=== PATIENT | female | born 1975 | race Asian ===

== ENCOUNTER 2017-03-11 07:52 | Emergency (ER) | payer OTHER ==
[~2017-03-11] VITALS: Ht 154.9 cm; Wt 97.1 kg
[~2017-03-11 07:52] MED LIST: METF500T2 PO; ORE25 PO
[2017-03-11 08:06] VITALS: BP 129/79
--- NOTE | 2017-03-11 08:28 | NUR ---
Patient ambulated to bed 06.
--- NOTE | 2017-03-11 08:34 | NUR ---
41/F present to ED c/o lower back pain x 2 days. pt denies injury or trauma, states that she has hx of sciatica. aaoX4, vss. ERMD notified of patient status.
--- NOTE | 2017-03-11 08:52 | NUR ---
ER MD DR. BARBA EVALUATING PT AT BEDSIDE.
[2017-03-11 09:33] VITALS: BP 124/82
--- NOTE | 2017-03-11 09:33 | NUR ---
Patient discharged with v/s stable. Written and verbal after care instructions given and explained. Patient alert, oriented and verbalized understanding of instructions. Ambulatory with steady gait. All questions addressed prior to discharge. ID band removed. Patient advised to follow up with PMD. Rx of GABAPENTIN & NAPROXYN given. Patient educated on indication of medication including possible reaction and side effects. Opportunity to ask questions provided and answered.
== END 2017-03-11 09:33 | disposition home or self-care (01) ==
LOC: MED 07:52
DX: M54.40 Lumbago with sciatica, unspecified side (principal); E11.9 Type 2 diabetes mellitus without complications; I10 Essential (primary) hypertension; Z79.899 Other long term (current) drug therapy; Z79.84 Long term (current) use of oral hypoglycemic drugs
CPT/HCPCS: 99283

== ENCOUNTER 2017-05-02 16:32 | Emergency (ER) | payer OTHER ==
[~2017-05-02] VITALS: Ht 152.4 cm; Wt 99.8 kg
[2017-05-02 17:15] VITALS: BP 156/105
--- NOTE | 2017-05-02 17:21 | NUR ---
PER DR GUAJARDO PT SEND BACK TO THE LOBBY
--- NOTE | 2017-05-02 17:40 | NUR ---
PT TAKEN TO BED 12.
[2017-05-02] MEDS ORDERED: KETOROLAC 30 MG/ML VIAL IVP ONE (17:50)
[2017-05-02] MEDS ORDERED: NACL 0.9% 1,000 ML IV ONE (17:50)
--- NOTE | 2017-05-02 17:55 | NUR ---
42F BIB [facility] C/O MILD SOB, PRODUCTIVE COUGH WHITE PLEGM, FATIGUE, AND 10/10 GENERALIZED BODY ACHES X 3 DAYS; PT IS AOX4, RR ARE EVEN AND UNLABORED; PULSE OX=97% ON RA; NAD; PT POSITIONED TO COMFORT, BED DOWN. WILL CONTINUE TO MONITOR.
--- NOTE | 2017-05-02 18:02 | NUR ---
xray by bedside
[2017-05-02 18:55] VITALS: BP 146/89
--- NOTE | 2017-05-02 18:55 | NUR ---
Patient discharged with v/s stable. Written and verbal after care instructions given and explained. Patient alert, oriented and verbalized understanding of instructions. Ambulatory with steady gait. All questions addressed prior to discharge. ID band removed. Patient advised to follow up with PMD. Rx of Keflex and Promethazine DM given. Patient educated on indication of medication including possible reaction and side effects. Opportunity to ask questions provided and answered.
== END 2017-05-02 18:55 | disposition home or self-care (01) ==
LOC: MED 16:32
DX: J40 Bronchitis, not specified as acute or chronic (principal)
CPT/HCPCS: 36415; 71010; 87804; 96361; 96374; 99284; J1885; Q0092

== ENCOUNTER 2017-05-29 17:19 | Inpatient (IN) | payer SELFPAY ==
[~2017-05-29] VITALS: Ht 152.4 cm; Wt 107.5 kg
[2017-05-29 17:29] VITALS: BP 156/112
--- NOTE | 2017-05-29 17:34 | NUR ---
EKG DONE IN TRIAGE AND SHOWN TO DR. SEGURA.
[2017-05-29] MEDS ORDERED: HYDR-133 PO (17:40)
--- NOTE | 2017-05-29 19:50 | NUR ---
PT TAKEN TO BED 3
--- NOTE | 2017-05-29 20:00 | NUR ---
SOB X2 DAYS, CHEST PAIN STARTED LAST NIGHT, PAIN 8/10, NON RADIATING, PT STATES SHE HAS HAD A COUGH FOR 1 MONTH, DRY, NON PRODUCTIVE. PT STATES SHE HAS HX BRONCHITIS. HX DM, HTN
[2017-05-29] MEDS ORDERED: ALBUTEROL SULFATE/IPRATROPIU 3 ML SOL IH ONE (20:15)
[2017-05-29 20:43] LABS: BASOPHILS # (AUTO) 0.4 K/uL (0.00-0.22); BASOPHILS % (AUTO) 4.1 % (0.0-2.0); EOSINOPHILS # (AUTO) 0.2 K/uL (0-0.4); EOSINOPHILS % (AUTO) 1.6 % (0.0-4.0); HEMATOCRIT 40.5 % (36-48); HEMOGLOBIN 12.3 g/dL (12.0-16.0); LYMPHOCYTES # (AUTO) 2.1 K/uL (2.5-16.5); LYMPHOCYTES % (AUTO) 21.6 % (20.5-51.1); MEAN CORPUSCULAR HEMOGLOBIN 23 pg (27-31); MEAN CORPUSCULAR HGB CONC 30 g/dL (33-37); MEAN CORPUSCULAR VOLUME 75 fL (80-94); MONOCYTES # (AUTO) 1.1 K/uL (0.8-1.0); MONOCYTES % (AUTO) 11.1 % (1.7-9.3); NEUTROPHILS # (AUTO) 5.9 K/uL (1.8-7.7); NEUTROPHILS % (AUTO) 61.6 % (42.2-75.2); PLATELET COUNT (AUTO) 268 K/uL (140-450); RED BLOOD CELL COUNT(AUTO) 5.43 MIL/uL (4.20-5.40); RED CELL DISTRIBUTION WIDTH 15.2 % (11.6-13.7); WHITE BLOOD COUNT (AUTO) 9.7 K/uL (4.8-10.8)
[2017-05-29 20:49] LABS: ANION GAP 16.1 (8-16); CARBON DIOXIDE 22.8 mmol/L (21-32); CREATININE 1.2 mg/dL (0.6-1.3); POTASSIUM 3.9 mmol/L (3.5-5.1)
[2017-05-29 20:54] LABS: ALBUMIN 2.7 g/dL (3.4-5.0); TOTAL BILIRUBIN 0.4 mg/dL (0.0-1.0)
[2017-05-29] MEDS ORDERED: ASPIRIN 81 MG TAB.CHEW PO ONE (21:10)
[2017-05-29] MEDS ORDERED: NITROGLYCERIN 2% 1 GM PKT TP ONE (21:10)
[2017-05-29] MEDS ORDERED: NACL 0.9% 1,000 ML IV ONE (21:10)
[2017-05-29] MEDS ORDERED: MORPHINE SULFATE 2 MG/ML SYR IVP PRN (21:25)
[2017-05-29] MEDS ORDERED: HYDROcodone/APAP 7.5/325 MG 1 TAB PO PRN (21:25)
[2017-05-29] MEDS ORDERED: ACETAMINOPHEN 325 MG TAB PO PRN (21:25)
[2017-05-29] MEDS ORDERED: DOCUSATE SODIUM 100 MG GELCAP PO PRN (21:25)
[2017-05-29] MEDS ORDERED: ONDANSETRON 4 MG/2 ML VIAL IM/IVP PRN (21:25)
--- NOTE | 2017-05-29 22:14 | NUR ---
DR. Santi ROSALES EVALUATING PATIENT AT BEDSIDE.
[2017-05-29 22:28] LABS: CHOL/HDL RATIO 3.3 (1-4.5); FREE T4 (FREE THYROXINE) 1.05 ng/dL (0.76-1.46); MAGNESIUM 1.4 mg/dL (1.8-2.4); PHOSPHORUS 3.9 mg/dL (2.5-4.9); THYROID STIMULATING HORMONE 1.9 uIU/mL (0.34-3.74)
--- NOTE | 2017-05-29 22:30 | NUR ---
ADMITTED THIS 42 YEAR OLD FEMALE FROM ER PER CHANG WITH CC OF SOB, AMBULATED TO THE ROOM AND WENT TO BR WITH STEADY GAIT, VOIDED FREELY, MADE COMFORTABLE ON BED, ASSESSMENT DONE, AAOX4, VITAL SIGNS TAKEN, BP SLIGHTLY ELEVATED, WILL LET DR ROSALES KNOW, SAT-96% ON ROOM AIR, DENIES ANY PAIN OR SOB, ORIENTED TO ROOM AND CALL LIGHT, PITTING EDEMA NOTED TO BLE, PLAN OF CARE DISCUSSED, SAFETY MEASURES IN PLACE, CALL LIGHT WITHIN REACH.
--- NOTE | 2017-05-29 22:35 | NUR ---
Patient will be admitted to care of DR DAVENPORT. Admited to TELE. Will go to room 119-B. Belongings list completed. Report to YURY.
[2017-05-29 22:41] LABS: PROTHROMBIN TIME 10.2 secs (10.8-13.4)
[2017-05-29 23:00] VITALS: BP 155/108
[2017-05-29 23:33] LABS: APPEARANCE,URINE CLEAR (CLEAR); BILIRUBIN,URINE NEGATIVE (NEGATIVE); BLOOD, URINE NEGATIVE (NEGATIVE); COLOR,URINE YELLOW (YELLOW); LEUKOCYTE ESTERASE ,URINE NEGATIVE (NEGATIVE); NITRITE, URINE NEGATIVE (NEGATIVE); UGLUCOSE TRACE (NEGATIVE)
[2017-05-29 23:39] LABS: BARBITURATE, URINE NEG. ng/ml (NEG <=200); BENZODIAZEPINE, URINE NEG. ng/mL (NEG <=200); CANNABINOID, URINE NEG. ng/mL (NEG <=50); COCAINE, URINE NEG. ng/mL (NEG <=300); OPIATE, URINE NEG. ng/mL (NEG <=2000); PHENCYCLIDINE SCREEN,URINE NEG. ng/mL (NEG <=25)
[2017-05-29] MEDS ORDERED: NITROGLYCERIN 0.4 MG TAB SL PRN (23:40)
[2017-05-29 23:43] LABS: RBC,URINE 0-5 (RARE) /HPF (0-5); WBC,URINE 0-5 (RARE) /HPF (0-5)
[2017-05-29] MEDS ORDERED: NACL 0.45% 500 ML IV SCH (23:45)
[2017-05-29] MEDS ORDERED: DEXTROSE 50% 50 ML SYR IVP PRN (23:50)
[2017-05-30] MEDS ORDERED: FUROSEMIDE 20 MG/2 ML VIAL IVP SCH ×2 (00:10→09:00)
[2017-05-30] MEDS ORDERED: MAGNESIUM OXIDE 400 MG TAB PO SCH (00:15)
--- NOTE | 2017-05-30 00:19 | NUR ---
PT SLEEPING, EASILY AROUSABLE, DUE MAG-OX PO AND LASIX IVP GIVEN WITH EDUCATION PROVIDED, ENCOURAGE TO CALL FOR ASSISTANCE IN GOING TO BR, IVF CHANGED TO 1/2 NS 500ML @50ML/H, MONITORED CLOSELY.
--- NOTE | 2017-05-30 03:50 | NUR ---
PT SLEEPING, EASILY AROUSABLE, PER PT SHE WENT SEVERAL TIMES TO BR TO VOID, VITAL SIGNS TAKEN, BP SLIGHTLY ELEVATED BUT GETTING BETTER, DENIES PAIN, NO SOB NOTED, IVF INFUSING WELL, MONITORED CLOSELY.
[2017-05-30 04:00] VITALS: BP 148/93
--- NOTE | 2017-05-30 05:50 | NUR ---
BLOOD SUGAR CHECKED WITH 194 RESULT, COVERAGE GIVEN, INSTRUCTED NPO FOR US OF ABDOMEN, VERBALIZED UNDERSTANDING, IVF INFUSING WELL, MONITORED CLOSELY.
[2017-05-30] MEDS: INSULIN LISPRO SLIDING SCALE 100 UNITS/ML VIAL SUBQ PRN ×4 (05:53→20:51)
[2017-05-30] MEDS: BLOOD GLUCOSE MONITORING 1 DEV DEV FS SCH ×4 (06:39→20:48)
--- NOTE | 2017-05-30 07:20 | NUR ---
PT SLEEPING, EASILY AROUSABLE, BEDSIDE REPORT GIVEN TO RN SYLVIA FOR CONTINUITY OF CARE.
--- NOTE | 2017-05-30 07:25 | NUR ---
REPORT RECEIVED FROM OVEN UNLOADER, PT RESTING QUIETLY IN NAD, RESP EVEN UNLABORED ON ROOM AIR, SKIN WARM DRY COLOR WNL, PT DENIES SOB OR CHEST PAIN, PT DENIES OTHER DISCOMFORT, PLAN OF CARE REVIEWED, PT REMAINS ON DIRECTOR OUTPATIENT SERVICES, BED LOCKED IN LOW POSITION, SIDE RAILS UP X2, CALL MONTEMAYOR WITHIN REACH, WILL CONTINUE TO MONITOR.
[2017-05-30 07:29] LABS: BASOPHILS # (AUTO) 0.2 K/uL (0.00-0.22); BASOPHILS % (AUTO) 1.8 % (0.0-2.0); EOSINOPHILS # (AUTO) 0.2 K/uL (0-0.4); EOSINOPHILS % (AUTO) 2.2 % (0.0-4.0); LYMPHOCYTES # (AUTO) 1.9 K/uL (2.5-16.5); MEAN CORPUSCULAR HEMOGLOBIN 23 pg (27-31); MEAN CORPUSCULAR HGB CONC 33 g/dL (33-37); MEAN CORPUSCULAR VOLUME 72 fL (80-94); MONOCYTES # (AUTO) 1.1 K/uL (0.8-1.0); MONOCYTES % (AUTO) 11.9 % (1.7-9.3); NEUTROPHILS # (AUTO) 5.4 K/uL (1.8-7.7); NEUTROPHILS % (AUTO) 63.1 % (42.2-75.2); PLATELET COUNT (AUTO) 264 K/uL (140-450); RED BLOOD CELL COUNT(AUTO) 5.16 MIL/uL (4.20-5.40); RED CELL DISTRIBUTION WIDTH 15.2 % (11.6-13.7); WHITE BLOOD COUNT (AUTO) 8.8 K/uL (4.8-10.8)
[2017-05-30 08:00] VITALS: BP 151/98
[2017-05-30 08:15] LABS: ANION GAP 14.8 (8-16); CARBON DIOXIDE 24.4 mmol/L (21-32); CREATININE 1.1 mg/dL (0.6-1.3); POTASSIUM 3.2 mmol/L (3.5-5.1)
[2017-05-30] MEDS: ALBUTEROL SULFATE/IPRATROPIU 3 ML SOL IH SCH ×3 (08:20→20:54)
[2017-05-30] MEDS ORDERED: METOPROLOL 25 MG TAB PO SCH (09:00)
[2017-05-30] MEDS ORDERED: LISINOPRIL 5 MG TAB PO SCH (09:00)
--- NOTE | 2017-05-30 09:20 | NUR ---
US AT BEDSIDE FOR ABD US.
--- NOTE | 2017-05-30 10:07 | NUR ---
PATIENT HAS BEEN SCREENED AND CATEGORIZED HIGH NUTRITION RISK. PT WILL BE SEEN WITHIN 1-2 DAYS OF ADMISSION. 05/29/17-05/30/[address]
[2017-05-30] MEDS: ECOTRIN 81 MG TABEC PO SCH (10:16)
[2017-05-30] MEDS: TRIAMTERENE/HCTZ 37.5/25 MG 1 TAB PO SCH (10:16)
[2017-05-30] MEDS: metFORMIN 500 MG TAB PO SCH ×2 (10:17→17:08)
--- NOTE | 2017-05-30 10:17 | NUR ---
AM MEDS GIVEN AT THIS TIME, PT VIDHYA WELL, BREAKFAST TRAY GIVEN. PT SPEAKING CLEARLY, DENIES SOB, DENIES PAIN, WILL CONTINUE TO MONITOR.
--- NOTE | 2017-05-30 11:55 | NUR ---
ECHO AT BEDSIDE
[2017-05-30 12:00] VITALS: BP 147/88
--- NOTE | 2017-05-30 12:38 | NUR ---
2u INSULIN GIVEN PER SLIDING SCALE FOR BS 198, PT SITTING UP EATING LUNCH, DENIES SOB, WILL CONTINUE TO MONITOR.
--- NOTE | 2017-05-30 14:53 | NUR ---
05/30/2017 RD INITIAL ASSESSMENT COMPLETED PLEASE REFER TO NUTRITION ASSESSMENT UNDER CARE ACTIVITY FOR ESTIMATED NUTRITIONAL NEEDS. CONTINUE CCHO 60 GM/ DAY DIET AND ANTIHYPERGLYCEMIC MEDS FOR GLUCOSE CONTROL. 2. ATTEMPTED TO DISCUSS HIGH GLUCOSE LEVELS WITH PT, PT DECLINED AT THIS TIME BUT DID ACCEPT A DIABETIC CLASS FLYER. PT ACKNOWLEDGED INFORMATION AND TOOK FLYER. 3. RD TO FOLLOW-UP IN 2-3 DAYS PATIENT IS HIGH RISK. KORIN [address] RD
[2017-05-30 16:00] VITALS: BP 148/83
--- NOTE | 2017-05-30 16:00 | NUR ---
VISITOR AT BEDSIDE, PT TALKING LAUGHING IN NAD, RESP EVEN UNALBORED DENIES CP OR SOB, DENIES ANY IMMEDIATE NEEDS, WILL CONTINUE TO MONITOR.
[2017-05-30] MEDS ORDERED: MAG SULF 2000 MG/WATER PREMIX 50 ML IV SCH (17:00)
[2017-05-30] MEDS ORDERED: POTASSIUM CHLORIDE 10 MEQ TABER PO SCH (17:00)
[2017-05-30] MEDS ORDERED: METOPROLOL SUCCINATE 50 MG TABER PO SCH (17:00)
[2017-05-30] MEDS ORDERED: ATORVASTATIN 20 MG TAB PO SCH (17:00)
--- NOTE | 2017-05-30 18:45 | NUR ---
PT NOTED TO BE IN ATRIAL FLUTTER ON THE MONITOR, DR PADILLA MADE AWARE, DR PADILLA AT BEDSIDE, NO NEW ORDERS, PT CONVERTED BACK TO NSR ON HER OWN, PT DENIES FEELING PALPITATION RATE REMAINS AT 101, DENIES CHEST PAIN, DENIES SOB, PT REMAINS ON CARDIAC MONTIOR, WILL CONTINUE TO MONITOR.
[2017-05-30] MEDS: FUROSEMIDE 20 MG/2 ML VIAL IVP SCH ×2 (19:30→20:44)
--- NOTE | 2017-05-30 19:30 | NUR ---
REPORT GIVEN TO POWER AND RECOVERY SUPERINTENDENT NURSE, PT IN STABLE CONDITION.
--- NOTE | 2017-05-30 19:30 | NUR ---
RECEIVED REPORT AT BEDSIDE FROM DAY SHIFT NURSE. PT A/OX4, ON ROOM AIR. AMBULATES WITH STEADY GAIT. PT HAS IV TO RIGHT AC 22G, SALINE LOCKED. MULTIPLE SCABS TO UPPER AND LOWER EXTREMITIES BILATERALLY, OTHER THAN SCABS, SKIN IS INTACT. SAFETY PRECAUTIONS IN PLACE. UPDATED BOARD. VITAL SIGNS WITHIN NORMAL LIMITS. PT IN STABLE CONDITION, NO SIGNS OF DISTRESS NOTED. BED IN LOW POSITION, CALL LIGHT WITHIN REACH. WILL CONTINUE TO MONITOR.
[2017-05-30 20:00] VITALS: BP 127/90
--- NOTE | 2017-05-30 20:25 | NUR ---
SPOKE TO DR PATRICK ABOUT LASIX ORDERED FOR 193 AND 2099, DR SAID TO ONLY GIVE ONE OF THE TWO. WILL GIVE 2099.
--- NOTE | 2017-05-30 20:45 | NUR ---
ADMINISTERED SCHEDULED MEDICATIONS AND 4 UNITS OF HUMALOG D/T BLOOD SUGAR 204. PT TOLERATED WELL.
[2017-05-31] VITALS: BP 128/81
--- NOTE | 2017-05-31 | NUR ---
VITAL SIGNS WITHIN NORMAL LIMITS. PT IN STABLE CONDITION, NO SIGNS OF DISTRESS NOTED. BED IN LOW POSITION, CALL LIGHT WITHIN REACH. WILL CONTINUE TO MONITOR.
[2017-05-31] MEDS: ALBUTEROL SULFATE/IPRATROPIU 3 ML SOL IH SCH ×2 (01:23→07:44)
[2017-05-31 04:00] VITALS: BP 118/69
--- NOTE | 2017-05-31 04:00 | NUR ---
VITAL SIGNS WITHIN NORMAL LIMITS. PT IN STABLE CONDITION, NO SIGNS OF DISTRESS NOTED. BED IN LOW POSITION, CALL LIGHT WITHIN REACH. WILL CONTINUE TO MONITOR.
[2017-05-31 06:16] LABS: T4 (THYROXINE) 5.9 ug/dL (4.5-12.0)
[2017-05-31 06:24] LABS: BASOPHILS # (AUTO) 0.2 K/uL (0.00-0.22); BASOPHILS % (AUTO) 2.2 % (0.0-2.0); EOSINOPHILS # (AUTO) 0.3 K/uL (0-0.4); EOSINOPHILS % (AUTO) 2.9 % (0.0-4.0); HEMATOCRIT 38.9 % (36-48); HEMOGLOBIN 12.4 g/dL (12.0-16.0); LYMPHOCYTES # (AUTO) 2.2 K/uL (2.5-16.5); LYMPHOCYTES % (AUTO) 24.7 % (20.5-51.1); MEAN CORPUSCULAR HEMOGLOBIN 23 pg (27-31); MEAN CORPUSCULAR HGB CONC 32 g/dL (33-37); MEAN CORPUSCULAR VOLUME 73 fL (80-94); MONOCYTES # (AUTO) 0.9 K/uL (0.8-1.0); MONOCYTES % (AUTO) 10.4 % (1.7-9.3); NEUTROPHILS # (AUTO) 5.2 K/uL (1.8-7.7); NEUTROPHILS % (AUTO) 59.8 % (42.2-75.2); PLATELET COUNT (AUTO) 286 K/uL (140-450); RED BLOOD CELL COUNT(AUTO) 5.32 MIL/uL (4.20-5.40); RED CELL DISTRIBUTION WIDTH 15.1 % (11.6-13.7); WHITE BLOOD COUNT (AUTO) 8.8 K/uL (4.8-10.8)
[2017-05-31] MEDS: BLOOD GLUCOSE MONITORING 1 DEV DEV FS SCH (06:36)
--- NOTE | 2017-05-31 06:45 | NUR ---
BLOOD SUGAR 136, NO INSULIN COVERAGE NEEDED. PT STABLE.
--- NOTE | 2017-05-31 07:16 | NUR ---
ENDORSED PATIENT TO COUNSEL RN FOR CONTINUITY OF CARE. PATIENT IS IN STABLE CONDITION.
--- NOTE | 2017-05-31 07:20 | NUR ---
RECEIVED PATIENT REPORT AT BEDSIDE FROM NIGHT NURSE. PATIENT IS AAOX4 AND SHOWS NO S/S OF ACUTE DISTRESS ON ROOM AIR. PATIENT DENIES PAIN. ON TELE MONITOR, SKIN INTACT, IV NOTED ON THE RT AC SL. PATIENT WAS EXPLAINED POC FOR TODAY AND SHE VERBALIZED UNDERSTANDING. BED IN LOW POSITION WITH CALL LIGHT WITHIN REACH.
[2017-05-31 08:00] VITALS: BP 133/86
[2017-05-31] MEDS: metFORMIN 500 MG TAB PO SCH (08:22)
[2017-05-31] MEDS: ECOTRIN 81 MG TABEC PO SCH (08:23)
[2017-05-31] MEDS: FUROSEMIDE 20 MG/2 ML VIAL IVP SCH (08:23)
[2017-05-31] MEDS: TRIAMTERENE/HCTZ 37.5/25 MG 1 TAB PO SCH (08:24)
--- NOTE | 2017-05-31 08:29 | NUR ---
ADMINISTERED SCHEDULED MEDICATIONS, PATIENT SWALLOWED WITHOUT DIFFICULTY. PATIENT'S NEEDS MET AT THIS TIME. BED IN LOW POSITION WITH CALL LIGHT WITHIN REACH.
[2017-05-31 08:57] LABS: ANION GAP 11.7 (8-16); CARBON DIOXIDE 30.4 mmol/L (21-32); CREATININE 1.1 mg/dL (0.6-1.3); POTASSIUM 3.1 mmol/L (3.5-5.1)
[2017-05-31] MEDS ORDERED: METOPROLOL SUCCINATE 50 MG TABER PO SCH (09:00)
[2017-05-31] MEDS ORDERED: ATORVASTATIN 20 MG TAB PO SCH (09:00)
[2017-05-31] MEDS ORDERED: LISINOPRIL 20 MG TAB PO SCH (09:00)
[2017-05-31 09:18] LABS: MAGNESIUM 1.6 mg/dL (1.8-2.4); PHOSPHORUS 5.4 mg/dL (2.5-4.9)
[2017-05-31] MEDS ORDERED: CALCIUM ACETATE 667 MG TAB PO SCH (09:35)
[2017-05-31] MEDS ORDERED: MAGNESIUM OXIDE 400 MG TAB PO SCH (09:36)
[2017-05-31] MEDS ORDERED: POTASSIUM CHLORIDE 10 MEQ TABER PO SCH (09:37)
--- NOTE | 2017-05-31 10:08 | NUR ---
ADMINISTERED SCHEDULED MEDICATIONS, PATIENT SWALLOWED WITHOUT DIFFICULTY. PATIENT'S NEEDS MET AT THIS TIME. BED IN LOW POSITION WITH CALL LIGHT WITHIN REACH.
[2017-05-31] MEDS ORDERED: ATOR40TA40 PO (10:58)
[2017-05-31] MEDS ORDERED: LISI-420 PO (10:58)
[2017-05-31] MEDS ORDERED: METO50TE2 PO (10:58)
[2017-05-31] MEDS ORDERED: GLUC-805 FS (10:58)
[2017-05-31] MEDS ORDERED: ALBU-118 IH (10:58)
[2017-05-31] MEDS ORDERED: IBUP-2213 PO (10:58)
[2017-05-31] MEDS ORDERED: FURO-572 PO (10:58)
[2017-05-31] MEDS ORDERED: ASPI-1173 PO (10:58)
--- NOTE | 2017-05-31 11:30 | NUR ---
PATIENT REFUSED BS CHECK PATIENT WILL BE DISCHARGED AND WILL F/U WITH CARE FOR BLOOD SUGAR ONCE SHE IS HOME. PATIENT HAS BEEN DISCHARGED. DISCHARGE INSTRUCTIONS AND PRESCRIPTIONS GIVEN. ALL PAPERWORK SIGNED, ALL QUESTIONS ANSWERED, PATIENT VERBALIZED UNDERSTANDING OF CONTINUATION OF CARE. ALL BELONGINGS AND PRESCRIPTIONS IN PATIENT'S POSSESSION. IV DISCONTINUED WITH IV CANNULA INTACT. WRISTBANDS AND TELE BOX REMOVED. OFFERED PATIENT WHEELCHAIR, PATIENT REFUSED. PATIENT AMB OFF UNIT WITH STEADY GAIT, WITH PRESENT AT SIDE. PATIENT LEFT IN STABLE CONDITION.
== END 2017-05-31 11:30 | disposition home or self-care (01) | DRG 280 ==
LOC: MED 17:19 → MTU 21:32
PROVIDERS: ADMIT Student in an Organized Health Care Education/Training Program; ATTEND Student in an Organized Health Care Education/Training Program
DX: I21.A1 Myocardial infarction type 2 (principal); E43 Unspecified severe protein-calorie malnutrition; J96.01 Acute respiratory failure with hypoxia; N17.0 Acute kidney failure with tubular necrosis; G92 Toxic encephalopathy; D68.59 Other primary thrombophilia; I50.43 Acute on chronic combined systolic (congestive) and diastolic (congestive) heart failure; E11.51 Type 2 diabetes mellitus with diabetic peripheral angiopathy without gangrene; E87.0 Hyperosmolality and hypernatremia; Z68.42 Body mass index [BMI] 45.0-49.9, adult; I42.9 Cardiomyopathy, unspecified; E11.65 Type 2 diabetes mellitus with hyperglycemia; I11.0 Hypertensive heart disease with heart failure; E87.8 Other disorders of electrolyte and fluid balance, not elsewhere classified; E66.01 Morbid (severe) obesity due to excess calories; E83.42 Hypomagnesemia; F15.10 Other stimulant abuse, uncomplicated; E87.6 Hypokalemia; M94.0 Chondrocostal junction syndrome [Tietze]; I07.1 Rheumatic tricuspid insufficiency; I27.20 Pulmonary hypertension, unspecified; E83.39 Other disorders of phosphorus metabolism; E78.00 Pure hypercholesterolemia, unspecified; F19.10 Other psychoactive substance abuse, uncomplicated; Z77.22 Contact with and (suspected) exposure to environmental tobacco smoke (acute) (chronic); Z86.73 Personal history of transient ischemic attack (TIA), and cerebral infarction without residual deficits
CPT/HCPCS: 36415; 71045; 76700; 80048; 80053; 80305; 81001; 82150; 82607; 82728; 82746; 82948; 83036; 83540; 83690; 83735; 83880; 84100; 84436; 84439; 84443; 84479; 84484; 85025; 85045; 85610; 85730; 87081; 93005; 93925; 93970; 94640; 99285; J1815; J1940; J3475; J7620; Q0092